=== PATIENT | female | born 1980 | race Caucasian/White ===

== ENCOUNTER 2016-06-08 01:41 | Inpatient (IN) | payer OTHER ==
[~2016-06-08] VITALS: Ht 170.2 cm; Wt 76.0 kg
[2016-06-08] VITALS (7 sets, daily range): BP systolic 93–99; BP diastolic 58–64; PULSE 73–102; TEMP 36.6–37; O2SAT 97–99; Ht 170.2 cm; Wt 76.0 kg
[~2016-06-08 01:41] MED LIST: ADAL40KI SQ; ESCI1TAB9 PO; ESCI5TAB PO; ONDA4TAB46 PO; PANT40TA PO; PREDNISONE PO
[2016-06-08] MEDS ORDERED: ONDANSETRON INJ 2 MG/ML 2 ML VIAL IV PRN (09:45)
[2016-06-08] MEDS ORDERED: ACETAMINOPHEN 325 MG TAB PO PRN (09:45)
[2016-06-08] MEDS ORDERED: METHYLPREDNISOLONE IV 20 MG in SYRINGE 0 ML IV SCH (10:00)
[2016-06-08 10:13] LABS: MEAN CELL VOLUME 82.3 fL (80-100); MEAN CORPUSCULAR HEMOGLOBIN 28.3 pg (25-34); MEAN CORPUSCULAR HGB CONC 34.4 g/dl (32-36); MEAN PLATELET VOLUME 11.1 fL (7.4-10.4); PLATELET COUNT 155 K/uL (130-400); RED BLOOD COUNT 4.13 M/uL (4.2-5.4); WHITE BLOOD COUNT 23.36 K/uL (4.8-10.8)
[2016-06-08 10:35] LABS: BASO % 0.1 %; BASO ABS # 0.03 K/uL (0-0.2); COMPLETE YES; IG% 0.3 %; LYMPH % 3.9 %; MONO % 6.9 %; NEUT % 88.8 %
[2016-06-08 10:43] LABS: ALT/SGPT 13 U/L (12-78); AST/SGOT 25 U/L (15-37); BLOOD UREA NITROGEN 7 mg/dl (7-18); BUN/CREATININE RATIO 9.8 (10-20); CALCIUM 8.1 mg/dl (8.5-10.1); CARBON DIOXIDE 22 mmol/L (21-32); CHLORIDE 111 mmol/L (98-107); GLUCOSE 91 mg/dl (70-99); MAGNESIUM 1.9 mg/dl (1.8-2.4); POTASSIUM 3.6 mmol/L (3.5-5.1); SODIUM 143 mmol/L (136-145)
[2016-06-08 10:46] LABS: ALKALINE PHOSPHATASE 91 U/L (45-117); PHOSPHORUS 2.2 mg/dl (2.5-4.9)
[2016-06-08] MEDS ORDERED: DICY20TA10 PO (10:46)
[2016-06-08] MEDS ORDERED: LORA0.5T12 PO (10:46)
[2016-06-08] MEDS ORDERED: PANT1TAB48 PO (10:46)
[2016-06-08] MEDS ORDERED: AMOX500T3 PO (10:46)
--- NOTE | 2016-06-08 11:22 | History and Physical ---
History & Physical Date & Time of Service: Jun 08, 2016 at 10:53 Chief Complaint: Crohn's Disease Primary Care Physician: Justa Becerra C.R.N.P. History of Present Illness Source: patient, hospital records 35 year old female who is a transfer from [facility]. Patient reports she had diarrhea for about 2 weeks however reports no bowel movements for the past 2 days. She denies any BRBPR or dark tarry stools. Last night she developed chills and rigors and had a temperature of 100.3 at home. She denies abdominal pain, nausea, or vomiting. Patient went to [facility] ED where she was found to be tachycardic in 150s. Patient reports she was having a panic attack. She was given IVF and Ativan and heart rate improved. She was also febrile. Labs showed WBC 21K. CT abd/pelvis showed "progression of patient's known Crohn's disease with involvement of a longer segment of the distal ileum. " Patient was given Levaquin and Flagyl. Lactic acid was noted to be WNL. Blood cultures were also drawn. Patient reports she has been on amoxicillin since 06/02 for a tooth infection. She denies chest pain or shortness of breath. No lightheadedness, dizziness, diaphoresis, or syncope. She denies any urinary symptoms. At the time of my exam, patient is resting in bed in no acute distress. Past Medical/Surgical History Medical Problems: (1) Crohn disease Status: Chronic (2) Depression Status: Chronic (3) GERD (gastroesophageal reflux disease) Status: Chronic (4) History of Clostridium difficile colitis Status: Chronic (5) SBO (small bowel obstruction) Status: Resolved Surgical Problems: (1) H/O tubal ligation Status: Chronic (2) S/P cholecystectomy Status: Chronic Family History Diabetes mellitus FATHER FH: uterine cancer MOTHER Social History Smoking Status: Current Every Day Smoker Alcohol Use: none Drug Use: none Immunizations History of Tetanus Vaccine?: Yes Tetanus Immunization Date: Jan 15, 2008 History of Hepatitis B Vaccine: Yes Hepatitis Immunization Date: Jan 28, 2015 Allergies Coded Allergies: Erythromycin (Verified Allergy, Severe, ANAPHYLAXIS, 09/16/15) Home Medications Scheduled Adalimumab (Humira Pen), 40 MG SQ UD Amoxicillin (Amoxil), 500 MG PO BID Pantoprazole (Protonix), 20 MG PO DAILY Scheduled PRN Dicyclomine Hcl (Dicyclomine Hcl), 1 TAB PO QID PRN for abdominal pain Lorazepam (Lorazepam), 1 TAB PO BID PRN for Anxiety Ondansetron Hcl (Zofran), 4 MG PO Q4 PRN for Nausea Review of Systems 10 point review of systems was completed with the pertinent positives and negatives noted per the HPI Physical Exam Vital Signs Date Time Temp Pulse Resp B/P Pulse Ox O2 Delivery O2 Flow Rate FiO2 06/08/16 09:45 36.8 91 20 95/64 97 Nasal Cannula General Appearance: no apparent distress Head: normocephalic Eyes: normal inspection ENT: hearing grossly normal, + pertinent finding (poor dentition) Neck: supple, no JVD Respiratory/Chest: lungs clear, normal breath sounds, no respiratory distress Cardiovascular: regular rate, rhythm, no edema, normal peripheral pulses Abdomen/GI: normal bowel sounds, non tender, soft Extremities/Musculoskelatal: normal inspection, no calf tenderness Neurologic/Psych: no motor/sensory deficits, alert, normal mood/affect, oriented x 3 Skin: normal color, warm/dry Diagnostics Laboratory Results Results Past 24 Hours Test 06/08/16 10:00 Range/Units White Blood Count 23.36 4.8-10.8 K/uL Red Blood Count 4.13 4.2-5.4 M/uL Hemoglobin 11.7 12.0-16.0 g/dL Hematocrit 34.0 37-47 % Mean Corpuscular Volume 82.3 80-100 fL Mean Corpuscular Hemoglobin 28.3 25-34 pg Mean Corpuscular Hemoglobin Concent 34.4 32-36 g/dl Platelet Count 155 130-400 K/uL Mean Platelet Volume 11.1 7.4-10.4 fL Neutrophils (%) (Auto) 88.8 % Lymphocytes (%) (Auto) 3.9 % Monocytes (%) (Auto) 6.9 % Eosinophils (%) (Auto) 0.0 % Basophils (%) (Auto) 0.1 % Neutrophils # (Auto) 20.74 1.4-6.5 K/uL Lymphocytes # (Auto) 0.90 1.2-3.4 K/uL Monocytes # (Auto) 1.62 0.11-0.59 K/uL Eosinophils # (Auto) 0.00 0-0.5 K/uL Basophils # (Auto) 0.03 0-0.2 K/uL RDW Standard Deviation 44.4 36.4-46.3 fL RDW Coefficient of Variation 14.7 11.5-14.5 % Immature Granulocyte % (Auto) 0.3 % Immature Granulocyte # (Auto) 0.07 0.00-0.02 K/uL Nucleated RBC Absolute Count (auto) 0.02 0-0 K/uL Nucleated Red Blood Cells % 0.1 % Sodium Level 143 136-145 mmol/L Potassium Level 3.6 3.5-5.1 mmol/L Chloride Level 111 98-107 mmol/L Carbon Dioxide Level 22 21-32 mmol/L Anion Gap 10.0 3-11 mmol/L Blood Urea Nitrogen 7 7-18 mg/dl Creatinine 0.70 0.60-1.20 mg/dl Estimated GFR () 131.0 Estimated GFR (Non- 113.0 BUN/Creatinine Ratio 9.8 10-20 Random Glucose 91 70-99 mg/dl Calcium Level 8.1 8.5-10.1 mg/dl Phosphorus Level 2.2 2.5-4.9 mg/dl Magnesium Level 1.9 1.8-2.4 mg/dl Total Bilirubin 0.3 0.2-1 mg/dl Direct Bilirubin < 0.1 0-0.2 mg/dl Aspartate Amino Transf (AST/SGOT) 25 15-37 U/L Alanine Aminotransferase (ALT/SGPT) 13 12-78 U/L Alkaline Phosphatase 91 45-117 U/L Total Protein 5.4 6.4-8.2 gm/dl Albumin 2.4 3.4-5.0 gm/dl Microbiology Results 06/08/16 C.difficile Toxin B Gene (PCR), Ordered Pending 06/08/16 Shiga Toxin Test, Ordered Pending 06/08/16 Stool Culture, Ordered Pending Impression Assessment and Plan CROHN'S FLARE - admitted to tele due to tachycardia at outside hospital - improved now - patient presented with fever and chills, reported diarrhea for 2 weeks however none for the past 2 days - WBC 21K, febrile, normal lactic acid at outside hospital - afebrile now - blood cultures drawn at [facility] - U/A negative, CXR clear - will start Cipro/Flagyl, Prednisone 20mg BID - CBC and PRP ordered - stool studies - NPO except sips, IVF - CT from [facility] - "progression of patient's known Crohn's disease with involvement of a longer segment of the distal ileum." - patient on Humira - last dose 06/07 - GI consult DENTAL INFECTION - has been on Amoxicillin since 06/02 - hold for now while on Cipro/Flagyl DVT PROPHYLAXIS - SCDs DISPO - In my clinical judgment this beneficiary meets acute admission criteria, established by [facility], that includes being hospitalized through two midnights. ATTENDING NOTE Patient seen & examined at bedside and reviewed above History/Physical. Confirmed the finding in person. Patient has known history of Crohn's Disease and last flare was in Dec 2015. Her last colonoscopy was about 2 years ago. She follows up with GI regularly. she felt feverish last night and went to ED. Denies any nausea/vomiting or abdominal pain. No diarrhea or blood in stools. No recent travel. No clinically significant finding in the physical exam. Will continue antibiotics and steroids for now but does not seem to be acute flare. Started clear liquid diet and will advance gradually as she tolerates. Patient is FULL CODE. DVT Prophylaxis with SCDs. Leeroy Duncan MD Level of Care Telemetry Resuscitation Status FULL RESUSCITATION VTE Prophylaxis VTE Risk Assessment Done? Y/N: Yes Risk Level: Low Given or contraindicated: SCD's
[2016-06-08] MEDS: NSS + 20MEQ KCL 1000ML 1,000 ML IV SCH ×2 (11:30→21:01)
[2016-06-08] MEDS: CIPROFLOXACIN / D5W 400 MG in PREMIXED IN D5W 200 ML IV SCH ×2 (11:30→21:49)
[2016-06-08] MEDS: METRONIDAZOLE / NSS 500 MG in PREMIXED NSS 100 ML IV SCH ×2 (11:30→19:34)
--- NOTE | 2016-06-08 12:25 | Gastrointestinal Consultation ---
Gastrointestinal Consultation Date of Consultation: Jun 08, 2016 Attending Physician: Dilma Skinner, KRIS; Dr. Godinez Consulting Physician: Dr. Veronica Reason for Consultation: Crohn's History of Present Illness Patient is a 35 year old female patient of Dr. Case with Crohn's. She presented to [facility] and was transferred here. GI is consulted for the Crohn's. Regarding her hx of Crohn's, she began with pain, diarrhea in 2012 and was eventually dx'ed with small bowel Crohn's with TI stricture in October. She is maintained on Humira 40mg SQ every other week (which was initiated in September 2015). She has not missed any Humira doses and feels that she is much improved on the Humira. She has also been (+) for C-diff in September 2015. She has been offered a referral to colorectal surgery to consider terminal ileal resection but she declines. Her most recent prior "flare of Crohn's" requiring steroids was in October 2015. At baseline, she has no pain, and passes one formed BM/day. However, during her menstrual week, she often has diarrhea. This was the case this month, this time for 1 1/2 weeks, she passed on liquid BM/day through Sunday. Then on Sunday she passed a small formed brown BM then began to worry about obstruction. She has previously had a partial SBO. She was worried about obstruction because no BM from Sunday until this morning an because she felt chills/riggers all day yesterday and her temp was 100.3. These symptoms resolved this morning soon after passing a BM which was formed, brown, and large. She is now on IV solumedrol 20mg Q 8hrs, Cipro and flagyl and tells us that she feels well enough to go home. She denies any abdominal pain or blood in stools. A CT was completed at [facility] where progression of patient's known Crohn's disease with involvement of a longer segment of the distal ileum." She also had tachycardia there but she tells me that it was due to a panic attack and it resolved with lorazepam. On arrival here, she had leukocytosis at 23. Creatinine and LFTs are normal. Past Medical/Surgical History Medical Problems: (1) Abdominal pain Status: Acute (2) Crohn's disease Status: Acute (3) Partial small bowel obstruction Status: Acute Past Medical History: 1. Small bowel Crohn's 2. Depression Past Surgical History: 1. Lap Choley 2. Tubal ligation 3. Most recent colonoscopy was on 11/09/[address] Floyd with mild to moderate ileal inflammation consistent with Crohn's. Family History Diabetes mellitus FATHER FH: uterine cancer MOTHER Social History Smoking Status: Current Every Day Smoker Drug Use: none Allergies Coded Allergies: Erythromycin (Verified Allergy, Severe, ANAPHYLAXIS, 09/16/15) Current Medications Home Meds and Scripts Medications Dose Route/Sig Max Daily Dose Days Date Category Dose Instructions Dicyclomine Hcl 20 Mg Tab 1 Tab PO QID PRN 30 06/08/16 Reported Lorazepam 0.5 Mg Tab 1 Tab PO BID PRN 30 06/08/16 Reported Amoxil (Amoxicillin) 500 Mg Tab 500 Mg PO BID 06/08/16 Reported to complete on 06/12 Protonix (Pantoprazole) 40 Mg Tab 20 Mg PO DAILY 06/08/16 Reported Zofran (Ondansetron HCl) 4 Mg Tab 4 Mg PO Q4 PRN 10/19/15 Reported Humira Pen (Adalimumab) 40 Mg/0.8 Ml Kit 40 Mg SQ UD 10/09/15 Reported Every 2 weeks Review of Systems Constitutional: No chills, No fever, No sweats, No weakness, No weight loss Eyes: No eye pain, No redness ENT: No pain on swallowing, No sore throat, No trouble swallowing Respiratory: No cough, No dyspnea on exertion, No shortness of breath, No wheezing Cardiac: No chest pain, No edema, No palpitations Abdomen: + see HPI Neuro: No balance problems, No memory loss, No numbness/tingling, No vertigo, No weakness Psych: No anxiety, No depression symptoms, No insomnia Heme: No abnormal bleeding/bruising, No night sweats Endo: No excessive thirst, No excessive urination Skin: No itch, No jaundice, No new/changing skin lesions, No rash Physical Exam Date Time Temp Pulse Resp B/P Pulse Ox O2 Delivery O2 Flow Rate FiO2 06/08/16 09:45 36.8 91 20 95/64 97 Nasal Cannula 06/08/16 09:45 36.8 91 20 95/64 97 Room Air General Appearance: no apparent distress Eyes: normal inspection, EOMI Neck: supple, no adenopathy, thyroid normal, no JVD Respiratory/Chest: chest non-tender, lungs clear, normal breath sounds, no accessory muscle use Cardiovascular: regular rate, rhythm, no JVD, no murmur Abdomen: normal bowel sounds, non tender, soft, no organomegaly Extremities: normal inspection, no pedal edema, normal capillary refill Neurologic/Psych: alert, normal mood/affect, oriented x 3 Skin: normal color, no jaundice, warm/dry, no rash Laboratory Results Last 24 Hours Test 06/08/16 10:00 White Blood Count 23.36 K/uL Red Blood Count 4.13 M/uL Hemoglobin 11.7 g/dL Hematocrit 34.0 % Mean Corpuscular Volume 82.3 fL Mean Corpuscular Hemoglobin 28.3 pg Mean Corpuscular Hemoglobin Concent 34.4 g/dl Platelet Count 155 K/uL Mean Platelet Volume 11.1 fL Neutrophils (%) (Auto) 88.8 % Lymphocytes (%) (Auto) 3.9 % Monocytes (%) (Auto) 6.9 % Eosinophils (%) (Auto) 0.0 % Basophils (%) (Auto) 0.1 % Neutrophils # (Auto) 20.74 K/uL Lymphocytes # (Auto) 0.90 K/uL Monocytes # (Auto) 1.62 K/uL Eosinophils # (Auto) 0.00 K/uL Basophils # (Auto) 0.03 K/uL RDW Standard Deviation 44.4 fL RDW Coefficient of Variation 14.7 % Immature Granulocyte % (Auto) 0.3 % Immature Granulocyte # (Auto) 0.07 K/uL Nucleated RBC Absolute Count (auto) 0.02 K/uL Nucleated Red Blood Cells % 0.1 % Sodium Level 143 mmol/L Potassium Level 3.6 mmol/L Chloride Level 111 mmol/L Carbon Dioxide Level 22 mmol/L Anion Gap 10.0 mmol/L Blood Urea Nitrogen 7 mg/dl Creatinine 0.70 mg/dl Estimated GFR () 131.0 Estimated GFR (Non- 113.0 BUN/Creatinine Ratio 9.8 Random Glucose 91 mg/dl Calcium Level 8.1 mg/dl Phosphorus Level 2.2 mg/dl Magnesium Level 1.9 mg/dl Total Bilirubin 0.3 mg/dl Direct Bilirubin < 0.1 mg/dl Aspartate Amino Transf (AST/SGOT) 25 U/L Alanine Aminotransferase (ALT/SGPT) 13 U/L Alkaline Phosphatase 91 U/L Total Protein 5.4 gm/dl Albumin 2.4 gm/dl Impression Patient is a 35 year old female with small bowel Crohn's with stricturing. She is experiencing a flare on Humira. Plan 1. Agree with Solumedrol 20mg IV Q 8hrs and Cipro/Flagyl. 2. Continue Humira 40mg Q 2 weeks. 3. Clear liquids po today. 4. If continues to do well, will consider DC tomorrow with a steroid taper. Attg addendum: I interviewed and examined pt, reviewed chart and labs. Pt with Crohn's flare. Plan steroids, cont tnf inhibitor.
[2016-06-08] MEDS ORDERED: LORAZEPAM 0.5 MG TAB PO PRN (16:45)
[2016-06-08] MEDS ORDERED: DICYCLOMINE HCL 20 MG TAB PO PRN (16:45)
[2016-06-09 03:34] VITALS: BP 95/60; PULSE 72; TEMP 36.6; O2SAT 98
[2016-06-09] MEDS: METRONIDAZOLE / NSS 500 MG in PREMIXED NSS 100 ML IV SCH (03:46)
[2016-06-09] MEDS: NSS + 20MEQ KCL 1000ML 1,000 ML IV SCH (04:49)
[2016-06-09 07:17] VITALS: BP 105/63; PULSE 74; TEMP 36.8; O2SAT 98
[2016-06-09 08:12] LABS: BUN/CREATININE RATIO 7.9 (10-20); CALCIUM 8.2 mg/dl (8.5-10.1); CREATININE 0.58 mg/dl (0.60-1.20)
[2016-06-09] MEDS ORDERED: PANTOprazole SOD 40 MG TAB PO SCH (09:00)
[2016-06-09 09:28] VITALS: O2SAT 98
[2016-06-09 09:28] LABS: HEMATOCRIT 33.9 % (37-47); MEAN CELL VOLUME 82.9 fL (80-100); MEAN CORPUSCULAR HEMOGLOBIN 28.4 pg (25-34); MEAN CORPUSCULAR HGB CONC 34.2 g/dl (32-36); MEAN PLATELET VOLUME 11.1 fL (7.4-10.4); PLATELET COUNT 158 K/uL (130-400); RED BLOOD COUNT 4.09 M/uL (4.2-5.4)
[2016-06-09] MEDS: CIPROFLOXACIN / D5W 400 MG in PREMIXED IN D5W 200 ML IV SCH (10:12)
--- NOTE | 2016-06-09 10:15 | Progress Note ---
Internal Med Progress Note Date of Service: Jun 09, 2016. Provider Documentation: SUBJECTIVE: Patient is lying in her bed in no apparent distress. Alert/Awake and answers my questions well. Denies any nausea/vomiting or abdominal pain. No fever/chills. Had 2 BMs overnight. Is tolerating the oral intake well. OBJECTIVE: Vital Signs-as noted below Examination: General Appearance: no apparent distress Head: normocephalic Eyes: normal inspection ENT: hearing grossly normal, poor dentition, Ears, Nose & Throat are normal looking. Neck: supple, no JVD, Midline trachea. Respiratory/Chest: lungs clear, normal breath sounds, no respiratory distress Cardiovascular: regular rate, rhythm, no edema, normal peripheral pulses Abdomen/GI: normal bowel sounds, non tender, soft Extremities/Musculoskeletal: normal inspection, no calf tenderness Neurologic/Psych: no motor/sensory deficits, alert, normal mood/affect, oriented x 3 Skin: normal color, warm/dry Lab data as noted below. ASSESSMENT & PLAN: Likely Crohn's Flare: Admitted to [facility] due to tachycardia at outside hospital - improved now Patient presented with fever and chills, reported diarrhea for 2 weeks however none for the past 2 days WBC 21K, febrile, normal lactic acid at outside hospital - afebrile now & WBC has come down. -Blood cultures drawn at [place] -U/A negative, CXR clear - Continue Cipro & Flagyl for total 7 days -Prednisone will be tapered gradually over 7-8 days -Tolerating soft diet well. - CT from [place] - "progression of patient's known Crohn's disease with involvement of a longer segment of the distal ileum." - patient on Humira - last dose 06/07 - GI consult noted. Thanks for input. Dental Infection: Had been on Amoxicillin since 06/02 - hold for now while on Cipro/Flagyl DVT Prophylaxis: SCDs Disposition: Discharge home later today. Follow up with PCP within one week after discharge. Follow up with GI as per scheduled appointment Vital Signs: Date Time Temp Pulse Resp B/P Pulse Ox O2 Delivery O2 Flow Rate FiO2 06/09/16 09:28 98 Room Air 06/09/16 08:00 Room Air 06/09/16 07:17 36.8 74 16 105/63 98 Room Air 06/09/16 04:00 Room Air 06/09/16 03:34 36.6 72 18 95/60 98 Room Air 06/08/16 23:59 Room Air 06/08/16 23:40 36.8 73 17 99/64 99 Room Air 06/08/16 20:00 Room Air 06/08/16 19:23 36.6 82 18 96/63 99 Room Air 06/08/16 16:00 97 Room Air 06/08/16 15:14 37.0 83 18 93/61 97 Room Air 06/08/16 13:49 36.9 102 18 95/58 98 Room Air 06/08/16 12:00 97 Room Air Lab Results: Results Past 24 Hours Test 06/09/16 07:28 Range/Units White Blood Count 11.00 4.8-10.8 K/uL Red Blood Count 4.09 4.2-5.4 M/uL Hemoglobin 11.6 12.0-16.0 g/dL Hematocrit 33.9 37-47 % Mean Corpuscular Volume 82.9 80-100 fL Mean Corpuscular Hemoglobin 28.4 25-34 pg Mean Corpuscular Hemoglobin Concent 34.2 32-36 g/dl RDW Standard Deviation 45.4 36.4-46.3 fL RDW Coefficient of Variation 15.1 11.5-14.5 % Platelet Count 158 130-400 K/uL Mean Platelet Volume 11.1 7.4-10.4 fL Sodium Level 143 136-145 mmol/L Potassium Level 4.0 3.5-5.1 mmol/L Chloride Level 115 98-107 mmol/L Carbon Dioxide Level 21 21-32 mmol/L Anion Gap 7.0 3-11 mmol/L Blood Urea Nitrogen 5 7-18 mg/dl Creatinine 0.58 0.60-1.20 mg/dl Est Creatinine Clear Calc Drug Dose 145.4 ml/min Estimated GFR () 139.4 Estimated GFR (Non- 120.3 BUN/Creatinine Ratio 7.9 10-20 Random Glucose 111 70-99 mg/dl Calcium Level 8.2 8.5-10.1 mg/dl Magnesium Level 2.0 1.8-2.4 mg/dl
[2016-06-09] MEDS ORDERED: METR-162 PO (10:23)
[2016-06-09] MEDS ORDERED: CIPR1TAB10 PO (10:23)
[2016-06-09] MEDS ORDERED: PRED10TA PO (10:23)
[2016-06-09] MEDS ORDERED: PRD20 PO (10:23)
--- NOTE | 2016-06-09 10:24 | Discharge Instructions ---
Discharge Instructions Admission Reason for Admission: Crohn's Disease Discharge Discharge Diagnosis / Problem: Crohn's Disease Flare Discharge Goals Goal(s): Decrease discomfort, Improve function, Increase independence, Improve disease control, Improve nutritional status, Learn about illness, Diagnostic testing, Therapeutic intervention Activity Recommendations Activity Limitations: resume your previous activity Lifting Limitations: none Exercise/Sports Limitations: as tolerated May Resume Sexual Activity: when tolerated Shower/Bathe: no limitations Driving or Machine Use: no limitations . Instructions / Follow-Up Instructions / Follow-Up 1. Follow dietary instructions as advised. 2. Take medications as advised. Follow up with PCP within one week after discharge. Follow up with GI as per scheduled appointment Current Hospital Diet Patient's current hospital diet: Low Fiber Diet, Low Fat Diet Discharge Diet Recommended Diet: Low Fiber Diet, Low Fat Diet Pending Studies Studies pending at discharge: no Medical Emergencies . Who to Call and When: Medical Emergencies: If at any time you feel your situation is an emergency, please call 911 immediately. . Non-Emergent Contact Non-Emergency issues call your: Primary Care Provider Call Non-Emergent contact if: your pain is not controlled, your pain is worsening . . "Provider Documentation" section prepared by Leeroy Duncan. VTE Core Measure Inpt VTE Proph given/why not?: SCD's
--- NOTE | 2016-06-09 10:30 | Discharge Summary ---
Discharge Summary Admission Date: Jun 08, 2016 at 09:30 Discharge Date: Jun 09, 2016 Discharge Disposition: Home Principal Diagnosis: Crohn's Disease Flare Secondary Diagnoses/Problems: Dental Infection Vaccinations: NONE Consultations: Gastroenterology Pending Studies/Follow-Up: NONE Medication Reconciliation New Medications: Ciprofloxacin Hcl (Cipro) 500 Mg Tab 500 MG PO BIDM, #12 TAB Metronidazole (Flagyl) 500 Mg Tab 500 MG PO TID, #18 TAB Prednisone (Prednisone) 20 Mg Tab 1 TAB PO QDB, #3 Prednisone (Prednisone) 10 Mg Tab 10 MG PO QDB, #4 TAB Continued Medications: Adalimumab (Humira Pen) 40 Mg/0.8 Ml Kit 40 MG SQ UD Every 2 weeks Dicyclomine Hcl (Dicyclomine Hcl) 20 Mg Tab 1 TAB PO QID PRN for abdominal pain for 30 Days, #120 TAB Lorazepam (Lorazepam) 0.5 Mg Tab 1 TAB PO BID PRN for Anxiety for 30 Days, #60 TAB Ondansetron Hcl (Zofran) 4 Mg Tab 4 MG PO Q4 PRN for Nausea, TAB Pantoprazole (Protonix) 40 Mg Tab 20 MG PO DAILY, #30 TAB Discontinued Medications: Amoxicillin (Amoxil) 500 Mg Tab 500 MG PO BID, TAB to complete on 06/12 Admission Information HPI (per Admitting provider): 35 year old female who is a transfer from [facility]. Patient reports she had diarrhea for about 2 weeks however reports no bowel movements for the past 2 days. She denies any BRBPR or dark tarry stools. Last night she developed chills and rigors and had a temperature of 100.3 at home. She denies abdominal pain, nausea, or vomiting. Patient went to [place] ED where she was found to be tachycardic in 150s. Patient reports she was having a panic attack. She was given IVF and Ativan and heart rate improved. She was also febrile. Labs showed WBC 21K. CT abd/pelvis showed "progression of patient's known Crohn's disease with involvement of a longer segment of the distal ileum. " Patient was given Levaquin and Flagyl. Lactic acid was noted to be WNL. Blood cultures were also drawn. Patient reports she has been on amoxicillin since 06/02 for a tooth infection. She denies chest pain or shortness of breath. No lightheadedness, dizziness, diaphoresis, or syncope. She denies any urinary symptoms. At the time of my exam, patient is resting in bed in no acute distress. Physical Exam (per Admitting): General Appearance: no apparent distress Head: normocephalic Eyes: normal inspection ENT: hearing grossly normal, + pertinent finding (poor dentition) Neck: supple, no JVD Respiratory/Chest: lungs clear, normal breath sounds, no respiratory distress Cardiovascular: regular rate, rhythm, no edema, normal peripheral pulses Abdomen/GI: normal bowel sounds, non tender, soft Extremities/Musculoskelatal: normal inspection, no calf tenderness Neurologic/Psych: no motor/sensory deficits, alert, normal mood/affect, oriented x 3 Skin: normal color, warm/dry Hospital Course Likely Crohn's Flare: Admitted to tele due to tachycardia at outside hospital - improved now Patient presented with fever and chills, reported diarrhea for 2 weeks however none for the past 2 days WBC 21K, febrile, normal lactic acid at outside hospital - afebrile now & WBC has come down. -Blood cultures drawn at [place] -U/A negative, CXR clear - Continue Cipro & Flagyl for total 7 days -Prednisone will be tapered gradually over 7-8 days -Tolerating soft diet well. - CT from [place] - "progression of patient's known Crohn's disease with involvement of a longer segment of the distal ileum." - patient on Humira - last dose 2/8 - GI consult noted. Thanks for input. Dental Infection: Had been on Amoxicillin since 2/ - hold for now while on Cipro/Flagyl DVT Prophylaxis: SCDs Disposition: Discharge home later today. Follow up with PCP within one week after discharge. Follow up with GI as per scheduled appointment Total time spent on discharge = 38 minutes. This includes examination of the patient, discharge planning, medication reconciliation, and communication with other providers. Discharge Instructions Activity Recommendations Activity Limitations: resume your previous activity Lifting Limitations: none Exercise/Sports Limitations: as tolerated May Resume Sexual Activity: when tolerated Shower/Bathe: no limitations Driving or Machine Use: no limitations . Instructions / Follow-Up Instructions / Follow-Up 1. Follow dietary instructions as advised. 2. Take medications as advised. Follow up with PCP within one week after discharge. Follow up with GI as per scheduled appointment Current Hospital Diet Patient's current hospital diet: Low Fiber Diet, Low Fat Diet Discharge Diet Recommended Diet: Low Fat Diet Additional Copies To Justa Becerra,CLeodanNBarbaraP.
[2016-06-09 11:11] VITALS: BP 105/63; PULSE 74; TEMP 36.8; O2SAT 98
--- NOTE | 2016-06-09 11:37 | Progress Note ---
Progress Note Pt is without pain, alda PO, and passing stool. No complaints, eager to get home. Abd Vital Signs Past 12 Hours Date Time Temp Pulse Resp B/P Pulse Ox O2 Delivery O2 Flow Rate FiO2 06/09/16 11:11 36.8 74 16 98 Room Air 06/09/16 09:28 98 Room Air 06/09/16 08:00 Room Air 06/09/16 07:17 36.8 74 16 105/63 98 Room Air 06/09/16 04:00 Room Air 06/09/16 03:34 36.6 72 18 95/60 98 Room Air 06/08/16 23:59 Room Air 06/08/16 23:40 36.8 73 17 99/64 99 Room Air Abd: Crohn's flare - OK for d/c. Would continue Humira, plan for pred taper (40/30/20/15/10/5), cipro x 7 days. Would consider checking trough TNF levels as outpt.
== END 2016-06-09 12:23 | disposition home or self-care (01) | DRG 386 ==
LOC: C.2T 09:30
PROVIDERS: ADMIT Hospitalist; ATTEND Hospitalist
DX: K50.012 Crohn's disease of small intestine with intestinal obstruction (principal); K04.7 Periapical abscess without sinus; R00.0 Tachycardia, unspecified; F41.0 Panic disorder [episodic paroxysmal anxiety]; F32.9 Major depressive disorder, single episode, unspecified; F17.210 Nicotine dependence, cigarettes, uncomplicated; Z79.899 Other long term (current) drug therapy